=== PATIENT | male | born 1985 | race Caucasian/White ===

== ENCOUNTER 2023-10-26 16:24 | Outpatient (OUT) | payer OTHER, SELFPAY ==
--- NOTE | 2023-10-26 16:52 | XR_ITS ---
The [address] [address] Patient Name: ERICK ALONSO MRN: [id number] date: 1985 Sex: M Assigned Patient Location: [facility] Current Patient Location: Accession/Order Number: [id number] Exam Date: 10/26/2023 16:43 Report Date: 10/27/2023 08:03 At the request of: ZOHREH AGUILA Procedure: XR lumbar spine min 4V EXAMINATION: XR lumbar spine min 4V HISTORY: Chronic pain G89.29, M54.50 low back pain COMPARISON: No relevant comparison available. FINDINGS: BONES: Normal. No significant spondylosis, scoliosis, fracture, or visible bony lesion. DISC SPACES: Normal. No significant disc height narrowing, subluxation, or endplate abnormality. PARASPINOUS: Negative. No paraspinous abnormality is seen. OTHER: Negative. XR/XR lumbar spine min 4V IMPRESSION: No acute radiographic abnormality Electronically authenticated by: MARY ANNE BARKSDALE Date: 10/27/2023 08:03
== END 2023-10-26 16:25 | disposition home or self-care (01) ==
PROVIDERS: PCP Nurse Practitioner Family; Visit Provider Nurse Practitioner Family
DX: G89.29 Other chronic pain (principal); M54.50 Low back pain, unspecified
CPT/HCPCS: 72110